=== PATIENT | female | born 1985 | race Caucasian/White ===

== ENCOUNTER 2018-06-23 15:44 | Emergency (ER) | payer OTHER ==
[~2018-06-23] VITALS: Ht 157.5 cm; Wt 78.5 kg
[2018-06-23] MEDS ORDERED: PRENATABS FA T1 EACH (16:56)
== END 2018-06-23 20:24 | disposition home or self-care (01) ==
LOC: ER 15:44
DX: N39.0 Urinary tract infection, site not specified (principal)

== ENCOUNTER 2018-08-05 06:06 | Inpatient (IN) | payer OTHER ==
[~2018-08-05] VITALS: Ht 157.5 cm; Wt 81.2 kg
[~2018-08-05 06:06] MED LIST: PRENATABS FA T1 EACH
== END 2018-08-06 09:57 | disposition home or self-care (01) | DRG 833 ==
LOC: LDR 06:06 → OB/GYN 06:06
PROC: 4A1HXCZ Monitoring of Products of Conception, Cardiac Rate, External Approach (ICD-10-PCS; principal; 2018-08-05)
DX: O60.03 Preterm labor without delivery, third trimester (principal); Z34.83 Encounter for supervision of other normal pregnancy, third trimester

== ENCOUNTER 2018-08-10 09:45 | Outpatient (CLI) | payer OTHER | END 2018-08-10 10:41 | disposition home or self-care (01) | LOC: NST 09:45 | DX: Z34.83 Encounter for supervision of other normal pregnancy, third trimester (principal) ==

== ENCOUNTER 2018-09-21 11:08 | Inpatient (IN) | payer OTHER ==
[~2018-09-21] VITALS: Ht 157.5 cm; Wt 2.7 kg
== END 2018-10-15 15:09 | disposition home or self-care (01) | DRG 788 ==
LOC: LDR 10-12 16:14 → SURG-SUITE 10-12 18:52 → OB/GYN 10-18 11:07
PROVIDERS: ADMIT Obstetrics & Gynecology Maternal & Fetal Medicine
PROC: 4A1HXCZ Monitoring of Products of Conception, Cardiac Rate, External Approach (ICD-10-PCS; 2018-10-12)
PROC: 10D00Z1 Extraction of Products of Conception, Low, Open Approach (ICD-10-PCS; principal; 2018-10-12 17:00)
DX: O14.14 Severe pre-eclampsia complicating childbirth (principal); Z3A.39 39 weeks gestation of pregnancy; Z37.0 Single live birth

== ENCOUNTER 2018-09-27 15:09 | Outpatient (CLI) | payer OTHER | END 2018-09-27 17:11 | disposition HB | LOC: NST 15:09 | DX: Z34.83 Encounter for supervision of other normal pregnancy, third trimester (principal) ==

== ENCOUNTER 2018-10-01 09:58 | Outpatient (CLI) | payer OTHER | END 2018-10-01 11:57 | disposition HB | LOC: NST 09:58 | DX: Z34.83 Encounter for supervision of other normal pregnancy, third trimester (principal) ==

== ENCOUNTER 2018-10-08 06:59 | Outpatient (CLI) | payer OTHER | END 2018-10-08 08:04 | disposition home or self-care (01) | LOC: NST 06:59 | DX: Z34.83 Encounter for supervision of other normal pregnancy, third trimester (principal) ==

== ENCOUNTER 2022-03-09 18:53 | Emergency (ER) | payer OTHER ==
[~2022-03-09] VITALS: Ht 157.5 cm; Wt 65.3 kg
[2022-03-09] MEDS ORDERED: DUI500 PO (22:50)
== END 2022-03-09 22:52 | disposition home or self-care (01) ==
LOC: ER 18:53
DX: J11.83 Influenza due to unidentified influenza virus with otitis media (principal); Z91.013 Allergy to seafood

== ENCOUNTER 2023-06-11 17:20 | Emergency (ER) | payer OTHER ==
[~2023-06-11] VITALS: Ht 157.5 cm; Wt 68.9 kg
[~2023-06-11 17:20] MED LIST changes: +DUI500 PO
== END 2023-06-11 21:31 | disposition home or self-care (01) ==
LOC: ER 17:20
PROVIDERS: Emergency Medicine
DX: K29.70 Gastritis, unspecified, without bleeding (principal); Z91.013 Allergy to seafood